=== PATIENT | male | born 1990 | race Two or more races ===

== ENCOUNTER 2018-10-04 17:10 | Emergency (ER) | payer MEDICAID ==
[~2018-10-04] VITALS: Ht 180.3 cm; Wt 77.1 kg
[2018-10-04 17:10] VITALS: BP 132/71
[2018-10-04] MEDS ORDERED: predniSONE 20 MG TABLET ONE (18:07)
[2018-10-04] MEDS ORDERED: HYDROCODONE/APAP 10/325MG 1 EA TABLET ONE (18:07)
[2018-10-04] MEDS ORDERED: HYDROCODONE/APAP 10/325MG 1 EA TABLET PO ONE (18:30)
[2018-10-04] MEDS ORDERED: predniSONE 20 MG TABLET PO ONE (18:30)
== END 2018-10-04 17:40 | disposition home or self-care (01) ==
LOC: ER 17:15
DX: M54.41 Lumbago with sciatica, right side (principal); R00.0 Tachycardia, unspecified; F10.10 Alcohol abuse, uncomplicated; J45.909 Unspecified asthma, uncomplicated; Y90.9 Presence of alcohol in blood, level not specified; Z85.6 Personal history of leukemia; Z96.651 Presence of right artificial knee joint; Z88.8 Allergy status to other drugs, medicaments and biological substances
CPT/HCPCS: 99283; A4606; J7512; Z7610